=== PATIENT | male | born 2000 | race African-American/Black ===

== ENCOUNTER → 2024-04-07 | Outpatient (CLI) | payer OTHER | LOC: M OUTALCOH 08:29 | PROVIDERS: ATTEND Psychiatry & Neurology Psychiatry | DX: Z03.89 Encounter for observation for other suspected diseases and conditions ruled out (principal) ==

== ENCOUNTER 2024-04-16 09:06 | Outpatient (RCR) | payer OTHER | END 2024-04-29 | LOC: M OUTALCOH 09:06 | PROVIDERS: ATTEND Psychiatry & Neurology Psychiatry | DX: Z03.89 Encounter for observation for other suspected diseases and conditions ruled out (principal) ==